=== PATIENT | female | born 2005 | race Caucasian/White ===

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

== ENCOUNTER 2024-10-28 18:52 | Emergency (ER) | payer BC, SELFPAY ==
[2024-10-28 18:53] VITALS: BP 107/73
[2024-10-28 19:10] LABS: HCG, Urine Qualitative Screen Negative
[2024-10-28 19:18] LABS: Urine Character Cloudy (Clear)
--- NOTE | 2024-10-28 19:30 | ED.GENMED ---
History of Present Illness
General
Chief Complaint: Flank Pain
Source: patient
Exam Limitations: none
Time Seen by Provider: 10/28/24 19:19
Nursing documentation reviewed up to this point in time: agreed with
History of Present Illness
History of Present Illness:
patient to ED with complaint of bilateral low back pain radiating around right side to RUQ abd. Symptoms started 2 days ago. Denies fever/chills. No n/v/d. States pain is present at all times but worsens with movement. Pain at rest began to
increase this evening. Janee to ED by mother magda shaffer
Past History
Past History
ED Past Medical History: Other (migraines)
ED Past Surgical History: Appendectomy and Tonsilectomy
Review of Systems
Review of Systems
Allergies reviewed?: Yes
All Other Systems: ROS reviewed and negative except as documented in HPI and ROS
Constitutional: Reports no symptoms
EENT: Reports no symptoms
Respiratory: Reports no symptoms
Cardiac: Reports no symptoms
ABD/GI: Reports abdominal pain (RUQ)
: Reports no symptoms
Musculoskeletal: Reports back pain (bilateral lower back pain)
Skin: Reports no symptoms
Neurological: Reports no symptoms
Psychiatric: Reports no symptoms
Phy Exam
General Physical Exam
General Presentation: moderate distress
General age: appears stated age
General Skin: warm and dry
General Habitus: normal
General Mental: alert
Pulmonary Exam
Pulmonary Exam: no respiratory distress and chest non tender
Gastrointestinal Exam
Gastrointestinal Exam: normal bowel sounds, non tender, soft, no organomegaly, no pulsatile mass and non distended
Musculoskeletal Exam
Musculoskeletal Exam: back pain (Bilateral low back pain, worse iwth movement. Radiates to RUQ abd.)
Skin Exam
Skin Exam: normal color, warm/dry and no rash
Psychiatric Exam
Psychiatric Exam: normal mood/affect
Course
Orders/Labs/Results
Orders:
Orders
10/28/24 18:56
Test Result ONCE
10/28/24 19:02
HCG, Urine Qualitative Screen Urgent
Date Specimen was Collected: 10/28/24
Time Specimen was Collected: 18:56
Urinalysis Reflex To Culture Urgent
Date Specimen was Collected: 10/28/24
Time Specimen was Collected: 18:56
Urine Microscopic Reflex Cult Urgent
Urine Culture Urgent
VICKI Source: U
Specimen Description:
Date Specimen was Collected: 10/28/24
Time Specimen was Collected: 18:56
10/28/24 19:27
Ketorolac [Toradol] 30 mg IV NOW STA
US Abdomen Complete/Upper Stat
Comment:
Reason For Exam: pain
10/28/24 20:33
Complete Blood Count/With Diff Urgent
Comprehensive Metabolic Panel Urgent
Lipase Urgent
10/28/24 20:56
CT Abd/pel Without Iv Or Oral Urgent
Comment:
Reason For Exam: right flank pain
10/28/24 21:04
Lactate Level [Lactic Acid] Urgent
10/28/24 21:44
Cephalexin Monohydrate [Keflex] 500 mg PO NOW STA
Abnormal Lab Results
10/28/24 10/28/24 10/28/24
19:02 20:33 21:04
WBC 19.1 H 10^3/uL
(4.8-10.8)
RBC 4.13 L 10^6/uL
(4.20-5.40)
Hct 35.5 L %
(37.0-47.0)
Abs Immat Gran (auto) 0.1 H 10^3/uL
(0-0.05)
Absolute Neuts (auto) 15.1 H 10^3/uL
(1.4-6.5)
Absolute Lymphs (auto) 0.9 L 10^3/uL
(1.2-3.4)
Absolute Monos (auto) 2.4 H 10^3/uL
(0.1-0.6)
Neutrophils % 78.6 H %
(42.2-75.2)
Lymphocytes % 4.7 L %
(20.5-51.1)
Monocytes % 12.3 H %
(1.7-9.3)
Creatinine 0.5 L mg/dL
(0.6-1.0)
Glucose 106 H mg/dl
(70-99)
Lactic Acid 0.6 L mmol/L
(0.7-2.0)
Ur Occult Blood Reflex 4+ A
(Negative)
Leukocyte Esterase Rfl 3+ A
(Negative)
Urine RBC 21-25 A /HPF
(0-2)
Urine WBC (Reflex) >100 A /HPF
(0-5)
Urine Bacteria (Reflex) Moderate A
(Negative)
Urine Albumin (Reflex) 2+ A
(Neg - Trace)
10/28/24 20:33
10/28/24 20:33
Vital Signs
Initial and Last Documented VS:
Initial Vital Signs
Temp Pulse Resp BP Pulse Ox
99.1 F 86 16 107/73 99
10/28/24 18:53 10/28/24 18:53 10/28/24 18:53 10/28/24 18:53 10/28/24 18:53
Last Documented Vital Signs
Temp Pulse Resp BP Pulse Ox
99.1 F 88 18 105/58 98
10/28/24 18:53 10/28/24 21:00 10/28/24 21:00 10/28/24 21:00 10/28/24 21:45
*Radiology
Radiology exam reviewed: radiology read reviewed
*Pulse Oximetry
SaO2: 99
Oxygen Mode of Delivery: Room air
Patient hypoxic: no
*Critical Care Note
Total Time (30-74mins, 75-104mins- exclusive of procedures): Not Applicable
Update Note
Update Note:
Patient to ED wtih report of bilateral back pain with radiation to RUQ abdomen x 2 days. Denies fever/chills. No n/v/d. Reports pain is worse with movement. Given toradol on arrival to ED with resolution of pain. Labs reviewed. WBC 19 noted.
Lact 0.6 Normotensive, afebrile in ED. UA +3 leuk, RBC 21-25, WBC >100 Moderate bacteria. US without evidence of hydronephrosis. CT neg for abstructions, calculi, hydronephrosis. Placed on Keflex in ED. Will continue BID x 7 days. She remains
awake and alert, nontoxic appearing. She is discharged home and will follow closely with PCP, repeat labs 1 week. Given instructions on s/s to rturn t oED and she is agreeable to plan.
ED Attending Note
-
Portions of this chart may have been created with voice recognition software.� Occasional wrong word or��sound alike� substitutions may have occurred due to the inherent limitations of voice recognition software.
Discharge Plan
Departure
Patient Disposition: Home (Routine Discharge)
Date of Disposition: 10/28/24
Time of Disposition: 21:46
Patient with high blood pressure during this ER visit?: No
Condition: Good
Covid-19: Not Applicable
Discharge Problem:
UTI (urinary tract infection)
Instructions: Urinary tract infections in adults
Prescriptions:
New
cephalexin 500 mg capsule
500 mg PO Q12H 7 Days Qty: 14 0RF
No Action
dextroamphetamine-amphetamine [Adderall] 10 mg Tablet
10 mg PO DAILY
Referrals:
Alisa Huff DO [Family Provider, Family Practice] - Follow up in 2-3 days
Activity Restrictions/Additional Instructions:
Return to the emergency department immediately for any changes in/worsening of your symptoms
Interventions
Interventions:
*Risk Screen - Suicide Last Done: 10/28/24 19:40
*General Assessment Last Done: 10/28/24 19:40
*Neglect/Abuse Screening Last Done: 10/28/24 19:40
*ED- Fall Risk Assessment Last Done: 10/28/24 19:40
*ED COVID-19 Vaccine History Last Done: 10/28/24 19:40
*Nursing Disposition Last Done: 10/28/24 22:01
LE-Jlxrpy-Enelgwxsww Assessment Last Done: 10/28/24 19:40
ED-Female Genitourinary Assessment Last Done: 10/28/24 19:40
Discharge Date and Time
Discharge Date/Time: 10/28/24 22:02
Print Language: LITHUANIAN
[2024-10-28] MEDS: TORADOL 30 MG IV (19:33)
[2024-10-28 19:40] VITALS: BP 109/68
[2024-10-28 20:09] LABS: Urine Red Blood Cell 21-25 /HPF (0-2); Urine White Cell >100 /HPF (0-5)
[2024-10-28 20:24] VITALS: BMI 24.0
[2024-10-28 20:29] VITALS: BP 93/68
[2024-10-28 20:38] LABS: Hematocrit 35.5 % (37.0-47.0); Hemoglobin 12.1 g/dL (12.0-16.0); Mean Corp Hgb Conc. 34.1 g/dL (33.0-37.0); Mean Corpuscular Volume 86.0 fL (81.0-99.0); Nucleated Red Blood Cells % 0 %; Platelet Count 361 10^3/uL (130-400); Red Cell Dist. Width 12.9 % (11.5-14.5)
[2024-10-28 21:00] VITALS: BP 105/58
[2024-10-28 21:13] LABS: ALT (SGPT) 16 U/L (0-35); AST (SGOT) 24 U/L (14-36); Albumin 4.1 g/dl (3.5-5.0); Alkaline Phosphatase 41 U/L (38-126); Blood Urea Nitrogen 12 mg/dl (7-17); Calcium 9.2 mg/dl (8.4-10.2); Carbon Dioxide 25 mmol/L (22-30); Chloride 105 mmol/L (98-107); Estimated Creatinine Clearance 124 ml/min; Glucose 106 mg/dl (70-99); Lipase 47 U/L (23-300); Potassium 3.7 mmol/L (3.5-5.1); Sodium 136 mmol/L (135-145); Total Protein 7.0 g/dl (6.3-8.2); eGFR > 60.00
[2024-10-28] MEDS: KEFLEX 500 MG PO (21:53)
== END 2024-10-28 22:02 | disposition home or self-care (01) ==
LOC: EMR 18:52
PROVIDERS: Nurse Practitioner; EMERGENCY PHYSICIAN Emergency Medicine; FAMILY PHYSICIAN Family Medicine
DX: M54.50 Low back pain, unspecified (principal)
CPT/HCPCS: 99284; 96374; 74176; 76700; 80053; 81003; 81015; 81025; 83605; 83690; 85025; 87086

== ENCOUNTER 2024-12-02 22:57 | Observation (INO) | payer BC, SELFPAY ==
[2024-12-02 15:35] LABS: Hematocrit 36.5 % (37.0-47.0); Hemoglobin 12.6 g/dL (12.0-16.0); Mean Corp Hgb Conc. 34.5 g/dL (33.0-37.0); Mean Corpuscular Volume 83.3 fL (81.0-99.0); Nucleated Red Blood Cells % 0 %; Platelet Count 286 10^3/uL (130-400); Red Cell Dist. Width 13.0 % (11.5-14.5)
[2024-12-02 15:39] LABS: Urine Character Cloudy (Clear)
[2024-12-02 15:51] LABS: Urine Squamous Cell 0-2 /LPF (Few)
[2024-12-02 15:52] LABS: HCG, Serum Qualitative Screen Negative; Urine White Cell >100 /HPF (0-5)
[2024-12-02 16:07] LABS: ALT (SGPT) 44 U/L (0-35); AST (SGOT) 44 U/L (14-36); Albumin 4.2 g/dl (3.5-5.0); Alkaline Phosphatase 93 U/L (38-126); Blood Urea Nitrogen 10 mg/dl (7-17); Calcium 8.9 mg/dl (8.4-10.2); Carbon Dioxide 24 mmol/L (22-30); Chloride 98 mmol/L (98-107); Glucose 111 mg/dl (70-99); Lipase 47 U/L (23-300); Potassium 3.8 mmol/L (3.5-5.1); Sodium 132 mmol/L (135-145); Total Protein 7.7 g/dl (6.3-8.2); eGFR > 60.00
--- NOTE | 2024-12-02 16:57 | ED.GENMED ---
History of Present Illness
<Tyra Monroy NP - Last Filed: 12/02/24 18:36>
General
Chief Complaint: Urinary Symptoms
Source: patient
Exam Limitations: none
Time Seen by Provider: 12/02/24 16:36
Nursing documentation reviewed up to this point in time: agreed with
History of Present Illness
History of Present Illness:
Patient to ED with complaint of left flank pain. Symptoms started on Saturday. Reports fever/chills,n/v. She was seen in ED in October for UTI. Urine culture pos for Ecoli. SHe completed course of antibiotic with resolution of symptoms She states
a few weeks later she noticed her urine became cloudy again. she did not follow up with PCP, no repeat urine completed. TO ED today accompainied by sig other.
Past History
<Tyra Monroy NP - Last Filed: 12/02/24 18:36>
Past History
ED Past Medical History: Other (migraines)
ED Past Surgical History: Appendectomy and Tonsilectomy
Review of Systems
<Tyra Monroy NP - Last Filed: 12/02/24 18:36>
Review of Systems
Allergies reviewed?: Yes
All Other Systems: ROS reviewed and negative except as documented in HPI and ROS
Constitutional: Reports no symptoms
EENT: Reports no symptoms
Respiratory: Reports no symptoms
Cardiac: Reports no symptoms
ABD/GI: Reports nausea and vomiting
: Reports flank pain and dark urine
Musculoskeletal: Reports no symptoms
Skin: Reports no symptoms
Neurological: Reports weakness
Psychiatric: Reports no symptoms
Phy Exam
<Tyra Monroy NP - Last Filed: 12/02/24 18:36>
General Physical Exam
General Presentation: moderate distress
General age: appears stated age
General Skin: warm and dry
General Habitus: normal
General Mental: alert
Gastrointestinal Exam
Gastrointestinal Exam: normal bowel sounds, non tender, soft, no organomegaly, no pulsatile mass, non distended and other (left CVA tenderness)
Musculoskeletal Exam
Musculoskeletal Exam: full ROM
Skin Exam
Skin Exam: normal color, warm/dry and no rash
Psychiatric Exam
Psychiatric Exam: normal mood/affect
Course
<Tyra Monroy BIT BENDER - Last Filed: 12/02/24 18:36>
Orders/Labs/Results
Orders:
Orders
12/02/24 15:19
Test Result ONCE
12/02/24 15:26
Complete Blood Count/With Diff Urgent
Comprehensive Metabolic Panel Urgent
HCG, Serum Qualitative Screen Urgent
Lipase Urgent
Urinalysis Reflex To Culture Urgent
Date Specimen was Collected: 12/02/24
Time Specimen was Collected: 15:19
Urine Microscopic Reflex Cult Urgent
Urine Culture Urgent
VICKI Source: U
Specimen Description:
Date Specimen was Collected: 12/02/24
Time Specimen was Collected: 15:19
12/02/24 16:55
Add On- LAB Urgent
Tests Added?: HCG serum qualitative
12/02/24 16:56
CT Abd/pel Without Iv Or Oral Urgent
Comment:
Reason For Exam: left flank pain
0.9% Sodium Chloride 1000 ml [Nss] 1,000 ml IV BOLUS
Ketorolac [Toradol] 30 mg IV NOW STA
Ondansetron Injectable [Zofran] 4 mg IV NOW STA
12/02/24 17:15
Lactic Acid Urgent
12/02/24 17:32
Sumatriptan Succinate [Imitrex] 6 mg SC NOW STA
12/02/24 18:22
Cefepime HCl [Maxipime] 2,000 mg IV NOW STA
Abnormal Lab Results
12/02/24
15:26
WBC 18.5 H 10^3/uL
(4.8-10.8)
Hct 36.5 L %
(37.0-47.0)
Abs Immat Gran (auto) 0.1 H 10^3/uL
(0-0.05)
Absolute Neuts (auto) 14.4 H 10^3/uL
(1.4-6.5)
Absolute Lymphs (auto) 0.9 L 10^3/uL
(1.2-3.4)
Absolute Monos (auto) 3.1 H 10^3/uL
(0.1-0.6)
Neutrophils % 77.7 H %
(42.2-75.2)
Lymphocytes % 4.7 L %
(20.5-51.1)
Monocytes % 16.8 H %
(1.7-9.3)
Sodium 132 L mmol/L
(135-145)
Glucose 111 H mg/dl
(70-99)
AST 44 H U/L
(14-36)
ALT 44 H U/L
(0-35)
Urine Ketones 3+ A
(Negative)
Ur Occult Blood Reflex 4+ A
(Negative)
Urine Nitrite (Reflex) Positive A
(Negative)
Leukocyte Esterase Rfl 3+ A
(Negative)
Urine RBC 3-6 A /HPF
(0-2)
Urine WBC (Reflex) >100 A /HPF
(0-5)
Urine Bacteria (Reflex) Many A
(Negative)
Urine Albumin (Reflex) 3+ A
(Neg - Trace)
12/02/24 15:26
12/02/24 15:26
Vital Signs
Initial and Last Documented VS:
Initial Vital Signs
Temp Pulse Resp Pulse Ox
100.2 F 113 18 96
12/02/24 15:15 12/02/24 15:15 12/02/24 15:15 12/02/24 15:15
Last Documented Vital Signs
Temp Pulse Resp BP Pulse Ox
100.2 F 113 18 110/75 96
12/02/24 15:15 12/02/24 15:15 12/02/24 15:15 12/02/24 17:14 12/02/24 16:59
<Quinn Lamas MD - Last Filed: 12/02/24 17:55>
Orders/Labs/Results
Orders:
Orders
12/02/24 15:19
Test Result ONCE
12/02/24 15:26
Complete Blood Count/With Diff Urgent
Comprehensive Metabolic Panel Urgent
HCG, Serum Qualitative Screen Urgent
Lipase Urgent
Urinalysis Reflex To Culture Urgent
Date Specimen was Collected: 12/02/24
Time Specimen was Collected: 15:19
Urine Microscopic Reflex Cult Urgent
Urine Culture Urgent
VICKI Source: U
Specimen Description:
Date Specimen was Collected: 12/02/24
Time Specimen was Collected: 15:19
12/02/24 16:55
Add On- LAB Urgent
Tests Added?: HCG serum qualitative
12/02/24 16:56
CT Abd/pel Without Iv Or Oral Urgent
Comment:
Reason For Exam: left flank pain
0.9% Sodium Chloride 1000 ml [Nss] 1,000 ml IV BOLUS
Ketorolac [Toradol] 30 mg IV NOW STA
Ondansetron Injectable [Zofran] 4 mg IV NOW STA
12/02/24 17:15
Lactic Acid Urgent
12/02/24 17:32
Sumatriptan Succinate [Imitrex] 6 mg SC NOW STA
12/02/24 18:22
Cefepime HCl [Maxipime] 2,000 mg IV NOW STA
Abnormal Lab Results
12/02/24
15:26
WBC 18.5 H 10^3/uL
(4.8-10.8)
Hct 36.5 L %
(37.0-47.0)
Abs Immat Gran (auto) 0.1 H 10^3/uL
(0-0.05)
Absolute Neuts (auto) 14.4 H 10^3/uL
(1.4-6.5)
Absolute Lymphs (auto) 0.9 L 10^3/uL
(1.2-3.4)
Absolute Monos (auto) 3.1 H 10^3/uL
(0.1-0.6)
Neutrophils % 77.7 H %
(42.2-75.2)
Lymphocytes % 4.7 L %
(20.5-51.1)
Monocytes % 16.8 H %
(1.7-9.3)
Sodium 132 L mmol/L
(135-145)
Glucose 111 H mg/dl
(70-99)
AST 44 H U/L
(14-36)
ALT 44 H U/L
(0-35)
Urine Ketones 3+ A
(Negative)
Ur Occult Blood Reflex 4+ A
(Negative)
Urine Nitrite (Reflex) Positive A
(Negative)
Leukocyte Esterase Rfl 3+ A
(Negative)
Urine RBC 3-6 A /HPF
(0-2)
Urine WBC (Reflex) >100 A /HPF
(0-5)
Urine Bacteria (Reflex) Many A
(Negative)
Urine Albumin (Reflex) 3+ A
(Neg - Trace)
12/02/24 15:26
12/02/24 15:26
Vital Signs
Initial and Last Documented VS:
Initial Vital Signs
Temp Pulse Resp Pulse Ox
100.2 F 113 18 96
12/02/24 15:15 12/02/24 15:15 12/02/24 15:15 12/02/24 15:15
Last Documented Vital Signs
Temp Pulse Resp BP Pulse Ox
100.2 F 113 18 110/75 96
12/02/24 15:15 12/02/24 15:15 12/02/24 15:15 12/02/24 17:14 12/02/24 16:59
<Tyra Monroy NP - Last Filed: 12/02/24 18:36>
*Pulse Oximetry
SaO2: 96
Oxygen Mode of Delivery: Room air
Patient hypoxic: no
*Critical Care Note
Total Time (30-74mins, 75-104mins- exclusive of procedures): Not Applicable
<Tyra Monroy NP - Last Filed: 12/02/24 18:36>
Update Note
Update Note:
Patient to ED wtih report of fever/chills, n/v, left flank pain x 3 days. Treated in October for UTI with resolution of symptoms for approx 2. After 2 weeks she noted cloudy urine but did not have urine rechecked. VSS, she remains afebarile in ED.
WBC 18.5, lactic pending. UA confirming UTI. No hydronephrosis noted on CT. Case discussed with dr. Lamas who also evaluated this patient. Due to recurrance of UTI, fever/chills, n/v, leukocytosis, wIll admit to hospitalist, IV antibiotics
started in ED
ED Attending Note
<Tyra Monroy NP - Last Filed: 12/02/24 18:36>
-
Portions of this chart may have been created with voice recognition software.� Occasional wrong word or��sound alike� substitutions may have occurred due to the inherent limitations of voice recognition software.
<Quinn Lamas MD - Last Filed: 12/02/24 17:55>
ED Attending Note
Patient seen and examined by attending physician: Yes
ED Attending Note:
Patient treated for UTI with antibiotics last month, presents ED secondary to recurrent cloudy urine, left lower back pain, along with fever over the past 4 days. Denies vomiting or diarrhea. Denies difficulty with urination. Denies dizziness or
weakness. Denies loss of appetite. In addition, patient with history of migraine headache, who receives Botox injection, reports increased headache, which has happened in the past, with any illness.
Physical Exam
General: mild painful distress, not acutely ill. febrile
Head: nc/at. eomi
Neck: supple. no meningeal signs.
Heart: s1/s2 regular rate and rhythm
Lungs: no acute respiratory distress. clear bilaterally
Abdomen: normal bowel sounds. not tender. mild left cva tenderness to palpation
Neuro: alert and oriented x 3. no focal neurological deficits
Skin: no rash
Psychiatric: well kept. interactive and cooperative
Extremities: no edema. no calf tenderness.
History and exam concerning for recurrent pyelonephritis versus incompletely treated pyelonephritis. CT abdomen pelvis pending. Patient will require IV antibiotics and further treatment.
Discharge Plan
Departure
Patient Disposition: Admit
Date of Disposition: 12/02/24
Time of Disposition: 18:28
Presentation/result/management discussed w/ accepting MD/DO: Hospitalist
Patient with high blood pressure during this ER visit?: No
Condition: Fair
Covid-19: Not Applicable
Discharge Problem:
Sepsis, UTI (urinary tract infection)
Prescriptions:
No Action
dextroamphetamine-amphetamine [Adderall XR] 10 mg Capsule,Extended Release 24hr
10 mg PO DAILY
Referrals:
Adina Davidson PA-C [Family Provider, Family Practice]
Interventions
Interventions:
*Risk Screen - Suicide Last Done: 12/02/24 15:15
*General Assessment Last Done: 12/02/24 15:15
*Neglect/Abuse Screening Last Done: 12/02/24 15:15
*ED COVID-19 Vaccine History Last Done: 12/02/24 15:15
Discharge Date and Time
Print Language: CHADIAN
[2024-12-02 17:13] VITALS: BMI 22.3
[2024-12-02 17:14] VITALS: BP 110/75
[2024-12-02] MEDS: TORADOL 30 MG IV (17:18)
[2024-12-02] MEDS: NSS 1000 IV ×2 (17:18→23:39)
[2024-12-02] MEDS: ZOFRAN 4 MG IV (17:19)
[2024-12-02] MEDS: IMITREX 6 MG SC (17:39)
[2024-12-02] MEDS: MAXIPIME 2000 MG IV (18:42)
--- NOTE | 2024-12-02 18:58 | HPS.HSE ---
Addendum entered and electronically signed by Ramiro Guerra MD 12/02/24 19:33:
This is an addendum to the H&P written by Pallavi Tomas on 12/02/2024. �Patient seen and examined independently with PA.
19-year-old female history of ADHD, migraine here with left flank pain and fevers and chills and nausea and vomiting. �Seen in emergency room in October for UTI. �Urine cultures positive for E. coli. �She completed antibiotics. �Few weeks later she
noticed her urine became cloudy again.
Vital signs show temperature 100.2. �Tachycardia up to 113. �Leukocytosis of 18.
Urinalysis consistent with UTI. �CT abdomen pelvis showed mild diffuse bladder wall thickening. �Questionable enlargement of the right ovary.
Sepsis secondary to UTI. �Check blood cultures. �Check urine culture. �IV fluids, ceftriaxone.
Original Note:
Family Physician
-
Family Physician: Adina Davidson PA-C
Chief Complaint
-
Flank Pain
History of Present Illness
Patient is 19 y/o female past medical history of migraine headaches and ADHD who presents with left flank pain and fever. Patient reports she was treated for a urinary tract infection last month. Since that time she had improvement in her symptoms
bit has intermittently noted some cloudy urine. Over the past 4 days she has developed left flank pain associated with fevers and chills. She reports urinary urgency but denies dysuria.
Medical History
Past Medical History
Past Medical History: Reports Other
Additional Past Medical History:
Migraine Headache receiving Botox
ADHD
Past Surgical History: Reports Other
Additional Past Surgical History:
Appendectomy
Tonsillectomy
Social History
Tobacco: Vaping
Alcohol: None
Family History
Family History: Not pertinent
Allergies / Home Medications
Allergies reflects when Allergies were last updated in [facility].
Home Medications with original date entered in [facility]
Allergy/Medication List:
Allergies
Allergy/AdvReac Type Severity Reaction Status Date / Time
morphine Allergy Intermediate Rash Verified 12/02/24 15:18
Home Medications
dextroamphetamine-amphetamine ER 10 mg 24hr capsule,extend release (Adderall XR) 10 mg PO DAILY 12/02/24
Review of Systems
-
A 12 point ROS was completed and negative except as noted: Yes
Constitutional: Reports Fever and Chills
Respiratory: Denies Cough or Trouble Breathing
Cardiac: Denies Chest Pain or Palpitations
: Reports See HPI
Physical Exam
Vital Signs
Vital Signs
Temp Pulse Resp BP Pulse Ox
100.2 F 113 18 110/75 96
12/02/24 15:15 12/02/24 15:15 12/02/24 15:15 12/02/24 17:14 12/02/24 16:59
Physical Exam
General: Comfortable and Conversant
HEENT: Anicteric and Moist mucous membranes
Respiratory: Clear and Non Labored Respirations
Cardiac: S1/S2 and Regular Rhythm
GI: Soft and Non Tender
Genito-urinary: Other (Left CVA Tenderness)
Skin: Warm and Dry
Neuro: Awake, Alert, Oriented and Nonfocal/grossly intact
Psych: Calm
Laboratory Results
-
12/02/24 15:26
12/02/24 15:26
Laboratory Results
Total Bilirubin 0.7 mg/dl (0.2-1.3) 12/02/24 15:26
AST 44 U/L (14-36) H 12/02/24 15:26
ALT 44 U/L (0-35) H 12/02/24 15:26
Alkaline Phosphatase 93 U/L (38-126) 12/02/24 15:26
Lipase 47 U/L (23-300) 12/02/24 15:26
Abd/Pelvis CT:
Mild diffuse bladder wall thickening.
Data Reviewed
-
Lab Data: Labs Reviewed by me
Impression/Plan
-
Sepsis secondary to Urinary Tract Infection
-Continue Ceftriaxone
-Await urine culture
Hyponatremia, mild
-Continue IVFs
-Recheck sodium in AM
DVT proph: Lovenox
Code Status: Full Code
[2024-12-02 19:22] VITALS: BP 107/74
[2024-12-02 22:18] VITALS: BP 111/64
[2024-12-02] MEDS: TYLENOL 650 MG PO (23:45)
[2024-12-03] MEDS: ROCEPHIN 1000 MG IV (02:21)
[2024-12-03] MEDS: STERILE WATER FOR INJECTION 10 ML IV (02:21)
[2024-12-03] MEDS: NSS 1000 IV ×3 (06:43→23:16)
[2024-12-03 07:03] LABS: Hematocrit 33.2 % (37.0-47.0); Hemoglobin 11.5 g/dL (12.0-16.0); Mean Corp Hgb Conc. 34.6 g/dL (33.0-37.0); Mean Corpuscular Volume 85.8 fL (81.0-99.0); Platelet Count 252 10^3/uL (130-400); Red Cell Dist. Width 13.2 % (11.5-14.5)
[2024-12-03 07:21] LABS: Blood Urea Nitrogen 10 mg/dl (7-17); Calcium 8.1 mg/dl (8.4-10.2); Carbon Dioxide 23 mmol/L (22-30); Chloride 105 mmol/L (98-107); Estimated Creatinine Clearance 124 ml/min; Glucose 101 mg/dl (70-99); Potassium 3.8 mmol/L (3.5-5.1); Sodium 135 mmol/L (135-145); eGFR > 60.00
[2024-12-03 08:09] VITALS: BP 88/54
--- NOTE | 2024-12-03 09:22 | EDCM ---
CM reviewed chart and met with pt bedside in ED. Lives with her mother, [facility] [address] [facility], first floor half bath, second floor bedroom and full bath.
Independent in ADLs, personal care and ambulation. Works and goes to school.
Confirms prescription coverage.
PCP: Adina Davidson
Pharmacy: [facility]
Anticipate discharge home, CM will continue to follow for any discharge planning needs.
[2024-12-03 09:45] LABS: ALT (SGPT) 32 U/L (0-35); AST (SGOT) 29 U/L (14-36); Albumin 3.1 g/dl (3.5-5.0); Alkaline Phosphatase 82 U/L (38-126); Total Protein 6.1 g/dl (6.3-8.2)
[2024-12-03 10:36] VITALS: BP 104/65
[2024-12-03] MEDS: IMITREX 6 MG SC (12:44)
--- NOTE | 2024-12-03 12:56 | W.PN.HOSP.TC ---
Today's Communication/Plan
-
Follow-up on the urine culture susceptibility was also notification
Continue with IV antibiotic
Continue with IV fluids
Triptan for headache
Assessment / Plan
Assessment / Plan
Sepsis secondary to Urinary Tract Infection
-Continue Ceftriaxone. Continue with IV fluids.
-Await urine culture identification susceptibilities also
Enlarged R ovary noted on CT scan
- No abdominal pain on the right side.
- Follow-up outpatient with gynecology.
Hyponatremia, mild
-Continue IVFs
- Resolved
ADHD
- Continue with Adderall
Migraine headache
- Triptan as needed. Tylenol as needed.
Severe nausea likely secondary to migraine headache
- Zofran as needed. Continue with IV fluids
DVT proph: Lovenox
Code Status: Full Code
Anticipated Discharge: 24 - 48 hours
Subjective/Interval History
-
Date of Service: December 03, 2024
Currently states of of migraine headache
States of decreased appetite
Also states improvement in left-sided flank pain
Patient with recurrent infection intraoperative time. . patient states she is sexually active. Also stated not concern for any STDs.
Stated of urinary urgency at home.
Objective Data
-
Labs:
Laboratory Results
12/03/24
06:43
WBC 16.4 H
Hgb 11.5 L
Hct 33.2 L
Plt Count 252
Sodium 135
Potassium 3.8
Chloride 105
Carbon Dioxide 23
BUN 10
Creatinine 0.5 L
Glucose 101 H
Calcium 8.1 L
Total Bilirubin 0.5
AST 29
ALT 32
Alkaline Phosphatase 82
Vital Signs:
Vital Signs
Temp Pulse Resp BP Pulse Ox
99 F 77 15 104/65 98
12/03/24 10:36 12/03/24 10:36 12/03/24 10:36 12/03/24 10:36 12/03/24 10:36
Physical Exam
-
General: Well Developed and No Apparent Distress
HEENT: Normocephalic, Atraumatic and Moist Mucous Membranes
Respiratory: Clear to Auscultation
Cardiac: Regular Rhythm and S1/S2; Negative Murmur, Rub or Gallop
GI: Soft, Nontender, Nondistended and Normal Bowel Sounds; Negative Organomegaly
Rectal: Deferred by Provider
Genito-urinary: Costovertebral Angle Tend (Left side )
Musculoskeletal: No Clubbing, No Cyanosis and No Edema
Skin: Negative Rash
Neuro: Awake, Alert, Oriented, AO x 3, No Motor Deficits and Nonfocal/Grossly Intact
Psych: Calm
Data Reviewed
-
Total Time Spent with Patient (in minutes): 55
[2024-12-03] MEDS: ZOFRAN 4 MG IV (13:26)
[2024-12-03 15:39] VITALS: BMI 22.7
[2024-12-03 16:01] VITALS: BP 112/76
[2024-12-03] MEDS: TYLENOL 650 MG PO (16:23)
[2024-12-03] MEDS: LOVENOX 40 MG SC (18:24)
[2024-12-03 23:06] VITALS: BP 99/56
[2024-12-04] MEDS: TYLENOL 650 MG PO (00:45)
[2024-12-04] MEDS: STERILE WATER FOR INJECTION 10 ML IV (01:54)
[2024-12-04] MEDS: ROCEPHIN 1000 MG IV (01:54)
[2024-12-04] MEDS: NSS 1000 IV (05:53)
[2024-12-04 09:08] LABS: Hematocrit 31.6 % (37.0-47.0); Hemoglobin 10.9 g/dL (12.0-16.0); Mean Corp Hgb Conc. 34.5 g/dL (33.0-37.0); Mean Corpuscular Volume 86.1 fL (81.0-99.0); Nucleated Red Blood Cells % 0 %; Platelet Count 304 10^3/uL (130-400); Red Cell Dist. Width 13.5 % (11.5-14.5)
[2024-12-04 09:19] LABS: ALT (SGPT) 50 U/L (0-35); AST (SGOT) 48 U/L (14-36); Albumin 3.0 g/dl (3.5-5.0); Alkaline Phosphatase 103 U/L (38-126); Blood Urea Nitrogen 2 mg/dl (7-17); Calcium 7.7 mg/dl (8.4-10.2); Carbon Dioxide 26 mmol/L (22-30); Chloride 108 mmol/L (98-107); Estimated Creatinine Clearance 124 ml/min; Glucose 100 mg/dl (70-99); Potassium 4.0 mmol/L (3.5-5.1); Sodium 139 mmol/L (135-145); Total Protein 5.9 g/dl (6.3-8.2); eGFR > 60.00
[2024-12-04 12:00] VITALS: BP 95/61
--- NOTE | 2024-12-04 12:21 | W.PN.HOSP.TC ---
Today's Communication/Plan
-
po abx
Assessment / Plan
Assessment / Plan
Sepsis secondary to Urinary Tract Infection
- Discontinue further IV fluids. WBC down trended.
- Transition patient to p.o. antibiotics. Transition to cefdinir
Enlarged R ovary noted on CT scan
- No abdominal pain on the right side.
- Follow-up outpatient with gynecology. This was relayed to the patient and she will follow-up with her primary manager category
Hyponatremia, mild
- Resolved
ADHD
- Continue with Adderall
Migraine headache
- Triptan as needed. Tylenol as needed.
Severe nausea likely secondary to migraine headache
- Zofran as needed. resolved.
DVT proph: Lovenox
Code Status: Full Code
More than 30 minutes spent in discharge including
Final examination of the patient
Summarizing hospital stay
Instructions for continuing care to all relevant caregivers
Preparation of discharge records, prescriptions, and referral forms
Total time spent (in minutes): 53
Anticipated Discharge: Today
Subjective/Interval History
-
Date of Service: December 04, 2024
States of improvement in left-sided flank pain
Overnight did not sleep much
Denies any dysuria or urgency currently
Objective Data
-
Labs:
Laboratory Results
12/04/24
07:38
WBC 12.6 H
Hgb 10.9 L
Hct 31.6 L
Plt Count 304 D
Sodium 139
Potassium 4.0
Chloride 108 H
Carbon Dioxide 26
BUN 2 L
Creatinine 0.5 L
Glucose 100 H
Calcium 7.7 L
Total Bilirubin 0.3
AST 48 H
ALT 50 H
Alkaline Phosphatase 103
Vital Signs:
Vital Signs
Temp Pulse Resp BP Pulse Ox
98.2 F 87 18 99/56 97
12/04/24 07:00 12/04/24 07:00 12/03/24 23:06 12/03/24 23:06 12/04/24 07:00
I&O
12/03/24 12/04/24 12/05/24
06:59 06:59 06:59
Intake Total 120 / 120
Balance 120 / 120
Physical Exam
-
General: Well Developed and No Apparent Distress
HEENT: Normocephalic, Atraumatic and Moist Mucous Membranes
Respiratory: Non Labored Respirations
Cardiac: S1/S2
GI: Nondistended
Rectal: Deferred by Provider
Musculoskeletal: No Clubbing, No Cyanosis and No Edema
Skin: Negative Rash
Neuro: Awake, Alert, Oriented, AO x 3 and Nonfocal/Grossly Intact
Psych: Calm
--- NOTE | 2024-12-04 12:28 | W.DCSUMMARY ---
Discharge Summary
Discharge Data
Date of Admission: 12/02/24
Date of Discharge: 12/04/24
-
Pending Results: No
Hospital Course
19-year-old female past medical history of ADHD, migraine headache was presented with left-sided flank pain. Patient was complaining of abdominal pain. Patient underwent CT abdomen pelvis on admission Mild diffuse bladder wall thickening. This may
be due to limited distention. Cystitis and bladder outlet obstruction not excluded. Stable IUD. Stable. Questionable enlargement of the right ovary. This would better be evaluated by pelvic ultrasound. New patient was complaining of cloudy urine at
home. Also was complaining of urinary urgency. Patient was found to be septic. Patient urine culture came back positive for E. coli infection. Patient symptomology consistent with urinary tract infection with suspected ascending infection
possibly pyelonephritis. Patient was maintained on IV fluid resuscitation and broad-spectrum antibiotics with IV ceftriaxone. Patient symptoms significantly improved. Patient was not having any urinary urgency or urinary complaints. Patient
flank pain also improved significantly. Patient was tolerating diet. Patient urine culture sensitivity was noted and was transitioned to p.o. cefdinir. Patient was also recommended to follow-up with her primary oncologist for questionable right
ovarian enlargement and also for repeat urine analysis once antibiotics are completed. Patient verbalized understanding. Patient also had migraine headache and received triptan medication x 2. Headache resolved.
Discharge Plan
-
Patient Disposition: Home (Routine Discharge)
Discharge Diagnosis/Procedures: Sepsis likely secondary to E. coli urinary tract infection with suspected pyelonephritis
Right ovarian questionable enlargement
Condition: Fair
Diet: Regular
Activity: As tolerated
Driving Restrictions: As prior to admission
Others Tests: Questionable enlargement of the right ovary. This would better be evaluated by pelvic ultrasound. 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
Referrals:
Adina Davidson PA-C [Family Provider, Family Practice] - in less than 1 week
Referral Note: Discussed with the primary doctor per pelvic ultrasound for right ovarian assessment
Prescriptions:
New
cefdinir 300 mg capsule
300 mg PO BID Qty: 24 0RF
Continued
dextroamphetamine-amphetamine [Adderall XR] 10 mg Capsule,Extended Release 24hr
10 mg PO DAILY
Discharge Orders:
Discharge Patient (As Directed); Ordered 12/04/24
Ordered By: Romero Harrington
Discharge Date and Time
Discharge Date/Time: 12/04/24 13:17
Print Language: PASHTO
--- NOTE | 2024-12-04 12:36 | CM ---
CM reviewed chart, plan for d/c today, no needs. Patient has transportation home.
Plan; home no needs
== END 2024-12-04 13:17 | disposition home or self-care (01) ==
LOC: 4 WEST ACU 22:57
PROVIDERS: Nurse Practitioner; Physician Assistant Medical; Student in an Organized Health Care Education/Training Program; ADMITTING PHYSICIAN Hospitalist; ATTENDING PHYSICIAN Hospitalist; EMERGENCY PHYSICIAN Emergency Medicine; FAMILY PHYSICIAN Student in an Organized Health Care Education/Training Program
DX: A41.9 Sepsis, unspecified organism (principal); N39.0 Urinary tract infection, site not specified; G43.909 Migraine, unspecified, not intractable, without status migrainosus; F17.290 Nicotine dependence, other tobacco product, uncomplicated; B96.20 Unspecified Escherichia coli [E. coli] as the cause of diseases classified elsewhere; E87.1 Hypo-osmolality and hyponatremia; F90.9 Attention-deficit hyperactivity disorder, unspecified type; Z87.440 Personal history of urinary (tract) infections
CPT/HCPCS: 74176; 80053; 81003; 81015; 82248; 83605; 83690; 84703; 85025; 85027; 87086; 87088; 87186; 93005; 96360; 96372; 96374; 96375; 99285; 99406; G0378